=== PATIENT | female | born 1980 | race Caucasian/White ===

== ENCOUNTER → 2016-06-09 | Outpatient (CLI) | payer OTHER ==
[~2016-06-09] MED LIST: ACET-1256 PO; CALC500C70 PO; CLR10 PO; DICY10CA12 PO; FOLI1TAB7 PO; IBUP-1451 PO; RANI300C PO
--- NOTE | 2016-06-09 16:31 | DIAGNOSTIC IMAGING REPORT ---
CT OF THE SINUSES WITHOUT CONTRAST FUSION PROTOCOL CLINICAL HISTORY: Post nasal drainage. Chronic sinusitis. COMPARISON STUDY: No previous studies for comparison. TECHNIQUE: Axial images of the sinuses were obtained without IV contrast. Coronal reformats were viewed. This study was performed according to Fusion protocol. FINDINGS: The intracranial contents are unremarkable on this unenhanced exam. There is no fluid within the mastoid air cells. There is no fluid within the middle ears. Ossicles are intact. Orbits are unremarkable on this unenhanced exam. No mass is identified within the nasal cavity or the sinuses. There is no bony destruction. The cribriform plate is intact. Major drainage pathways are patent. There is minimal mucosal thickening of the ethmoid sinuses. There is mild leftward deviation of the nasal septum with spur formation. No air-fluid levels are present. The turbinates are intact. IMPRESSION: 1. No significant sinus opacification. Patent major drainage pathways. Minimal mucosal thickening of the ethmoid sinuses. 2. Mild leftward deviation of the nasal septum with moderate spur formation. Electronically signed by: Kris Thakkar M.D. 06/09/2016 4:29 PM Dictated Date/Time: 06/09/2016 4:25 PM
== END | disposition home or self-care (01) ==
LOC: C.CTS 16:03
PROVIDERS: ATTEND Hospitalist
DX: J32.9 Chronic sinusitis, unspecified (principal); R09.82 Postnasal drip

== ENCOUNTER → 2016-08-02 | Day surgery (SDC) | payer OTHER ==
[2016-07-20 11:33] VITALS: Ht 167.6 cm; Wt 81.8 kg
[~2016-08-02] VITALS: Ht 167.6 cm; Wt 81.8 kg
[~2016-08-02] MED LIST changes: +ATROPINE SULFATE 0.1 MG/ML 5ML SYR IV PRN; +CEFAZOLIN 2000 MG/60 ML D5W IV SCH; +DEXAMETHASONE SOD INJ 4 MG/ML VIAL ONE; +EpHEDrine SULFATE INJ 50 MG/ML AMP IV PRN; +EpINEphrine INJ 1MG/ML AMP 1 MG/ML AMP ONE; +FENTANYL CITRATE INJ 50 MCG/1 ML 2 ML VIAL ONE; +HYDROCODONE/ACETAMOPHEN 5/325MG TAB PO PRN; +LACTATED RINGER'S 1000ML 1,000 ML IV SCH; +LIDOCAINE 4% MPF SOAK 5 ML = 1 DOSE TOP ONE; +LIDOCAINE HCL 2% 2 ML VIAL (20MG/ML) ONE; +LIDOCAINE/EPINEPHRINE 1% INJ 50 ML VIAL ONE; +MIDAZOLAM HCL 1 MG/ML 2ML VIAL ONE; +ONDANSETRON INJ 2 MG/ML 2 ML VIAL IV PRN; +ONDANSETRON INJ 2 MG/ML 2 ML VIAL ONE; +OXYMETAZOLINE HCL 0.05% NA SPR 15 ML BTL PRN; +OXYMETAZOLINE HCL 0.05% NA SPR 15 ML BTL SCH; +PROPOFOL IV EMULSION 10 MG/ML 20 ML VIAL IV ONE; +SUCCINYLCHOLINE CHLORIDE 20 MG/ML 10 ML VIAL IV ONE
--- NOTE | 2016-08-02 11:45 | History & Physical Bridge - SC ---
H&P Re-Evaluation Bridge Note: I have examined the patient, reviewed the History & Physical and in the interval since the performance of the History & Physical I have noted the following changes of clinical significance: No changes noted
--- NOTE | 2016-08-02 11:58 | History and Physical: Surg Cnt ---
History & Physical Date Aug 02, 2016. Chief Complaint NASAL OBSTRUCTION History of Present Illness The patient is a 36 year old female with complaints of L>R NASAL OBSTRUCTION FOUND TO HAVE LEFT SEPTAL DEVIATION AND R>L INFERIOR TURBINATE HYPERTROPHY Past Medical/Surgical History PSH: S/P ORAL SURGERY Additional History Hepatic Disease: No Endocrine Disorder: No Kidney Disease: No Hypertension: No Heart Disease: No Bleeding Tendencies: No Infectious Diseases: No Allergies Coded Allergies: Acetaminophen (Verified Allergy, Unknown, RASH AND "FEELING CRAZY", ) Codeine (Verified Allergy, Unknown, RASH AND "FEELING CRAZY", 08/02/16) Fluconazole (Verified Allergy, Unknown, RASH, 08/02/16) Home Medications Scheduled Calcium/Vitamin D (Os-George 500 Plus D), 1 TAB PO QAM Folic Acid (Folvite), 1 MG PO QAM Loratadine (Claritin), 10 MG PO QAM Ranitidine Hcl (Ranitidine Hcl), 1 CAP PO QAM Scheduled PRN Acetaminophen (Tylenol), 500 MG PO Q6H PRN for Pain Dicyclomine Hcl (Dicyclomine Hcl), 1 CAP PO TID PRN for Diarrhea Ibuprofen Tab (Motrin), 800 MG PO Q8H PRN for Pain Physical Examination Skin: warm/dry, no rash Eyes: normal inspection, EOMI, sclerae normal ENT: + pertinent finding (LEFT SEPTAL DEVIATION AND R>L ITH) Head: normocephalic, atraumatic Neck: supple, no adenopathy, trachea midline Respiratory/Chest: lungs clear, normal breath sounds, no respiratory distress Cardiovascular: regular rate, rhythm, no edema, no murmur Neurologic/Psych: no motor/sensory deficits, alert, normal reflexes, oriented x 3 Diagnosis LEFT SEPTAL DEVIATION AND R>L INFERIOR TURBINATE HYPERTROPHY Plan of Treatment SEPTOPLASTY AND BILATERAL INFERIOR TURBINATE REDUCTION
--- NOTE | 2016-08-02 12:30 | [facility] Operative Report ---
Operative Report Operative Date Aug 02, 2016. Pre-Operative Diagnosis Deviated Nasal Septum, Hypertrophy of Inferior Nasal Turbinates Post-Operative Diagnosis Same Procedure(s) Performed Septoplasty And Bilateral Inferior Turbinate Outfracture And Turbinoplasty Surgeon Dr. Bassett Evidence Custodian Surgeon(s) None Estimated Blood Loss 10 mL Findings 1. MODERATE L DNS 2. R>L ITH Specimens None I attest to the content of the Intraoperative Record and any orders documented therein. Any exceptions are noted below.
--- NOTE | 2016-08-02 12:33 | Discharge Instructions ---
Discharge Instructions Date of Service Aug 02, 2016. Admission Reason for Admission: SEPTAL DEVIATION AND BILATERAL INFERIOR TURBINATE HYPERTROPHY Discharge Discharge Diagnosis / Problem: SAME Discharge Goals Goal(s): Improve function Activity Recommendations Activity Limitations: as noted below LIGHT ACTIVITY FOR 2WEEKS; NO NOSE BLOWING FOR 2WEEKS; NO DRIVING WHILE ON NARCOTICS . Current Hospital Diet Patient's current hospital diet: Discharge Diet Recommended Diet: Regular Diet Procedures Procedures Performed: Septoplasty And Bilateral Inferior Turbinate Outfracture And Turbinoplasty Pending Studies Studies pending at discharge: no Medical Emergencies . Who to Call and When: Medical Emergencies: If at any time you feel your situation is an emergency, please call 911 immediately. . Non-Emergent Contact Non-Emergency issues call your: Surgeon . . "Provider Documentation" section prepared by Jaydon Bassett. VTE Core Measure Inpt VTE Proph given/why not?: SCD's
--- NOTE | 2016-08-02 13:08 | Anesthesia Progress Nt - [facility] ---
Anesthesia Post Op Note Date & Time Aug 02, 2016 at 13:08 Vital Signs Pain Intensity: 0 Vital Signs Past 12 Hours Date Time Temp Pulse Resp B/P Pulse Ox O2 Delivery O2 Flow Rate FiO2 08/02/16 12:47 36.8 99 18 135/61 99 Humidified Oxygen 6 Diffusion Mask 08/02/16 10:21 36.6 70 16 124/80 100 Room Air Notes Mental Status: alert / awake / arousable, participated in evaluation Pt Amnestic to Procedure: Yes Nausea / Vomiting: adequately controlled Pain: adequately controlled Airway Patency, RR, SpO2: stable & adequate BP & HR: stable & adequate Hydration State: stable & adequate Anesthetic Complications: no major complications apparent
[2016-08-02 13:38] VITALS: TEMP 36.7
[2016-08-02 14:05] VITALS: BP 131/83; PULSE 75; O2SAT 100
--- NOTE | 2016-08-02 14:57 | OPERATIVE REPORT ---
DATE OF OPERATION: 08/02/2016 PREOPERATIVE DIAGNOSES: 1. Left septal deviation. 2. Right greater than left inferior turbinate hypertrophy. POSTOPERATIVE DIAGNOSES: 1. Left septal deviation. 2. Right greater than left inferior turbinate hypertrophy. PROCEDURES: 1. Septoplasty. 2. Bilateral inferior turbinate outfracture and turbinoplasty. SURGEON: Dr. Jaydon Bassett. ANESTHESIA: General endotracheal. ESTIMATED BLOOD LOSS: 10 mL. FINDINGS: 1. Moderate left septal deviation with posterior septal spur. 2. Right greater than left inferior turbinate hypertrophy. SPECIMENS: None. COMPLICATIONS: None. INDICATIONS FOR THE PROCEDURE: The patient is a 36-year-old female with a complaint of left greater than right nasal airway obstruction and was found to have left septal deviation and right greater than left inferior turbinate hypertrophy. She presents for the above-mentioned procedures on an outpatient elective basis. DESCRIPTION OF PROCEDURE: After informed consent had been obtained from the patient, the patient was wheeled to the operating room and placed on the operating table in the supine position. Monitors were placed. After induction of general endotracheal anesthesia, the patient was prepped in the usual fashion for septoplasty. 6 mL of 1% lidocaine with 1:100,000 epinephrine was used to inject the mucosa and submucosa of the nasal septum, thereby performing a hydrodissection of the mucoperichondrial and mucoperiosteal flaps. Lidocaine and Afrin pledgets were then placed in the bilateral nasal cavities and pressure applied. The pledgets were then removed and a #15 scalpel was used to make a left [place] incision, through which a left-sided mucoperichondrial mucoperiosteal flap was elevated. A #15 scalpel was then used to incise the quadrangular cartilage with care to preserve a 1.5-cm dorsal and caudal strut and the right-sided mucoperichondrial mucoperiosteal flap was elevated through this cartilaginous incision. A Vicente Silver knife was then used to remove the deviated portion of the quadrangular cartilage. The Chester-Moralez forceps was then used to remove septal bone posteriorly. Kellen forceps was used to remove a large bony septal spur, which was impinging on the airway posteriorly on the left hand side. The septal cavity was then suctioned. The left [place] incision was then closed with several simple interrupted 4-0 chromic sutures. A 4-0 plain gut suture on a Napoleon needle was then used to perform a quilting stitch of the mucoperichondrial mucoperiosteal flaps bilaterally to help prevent septal hematoma. A Farrell elevator was then used to infracture and subsequently outfracture the inferior turbinates bilaterally. 3 mL of 1% lidocaine with 1:100,000 epinephrine was used to inject the inferior turbinates bilaterally. A 2.0-mm turbinate blade using powered instrumentation was then used to perform bilateral inferior turbinoplasties in a submucosal fashion. The sinonasal cavities and nasopharynx were then suctioned. An orogastric tube was placed and the stomach was suctioned free of any stomach contents. This marked the end of the case. The patient tolerated the procedure well and there were no apparent complications. All the instrumentation was removed from the patient. The patient was extubated and transferred to recovery room in stable condition. I attest to the content of the Intraoperative Record and any orders documented therein. Any exceptio ns are noted below.
== END | disposition home or self-care (01) ==
LOC: X.SURG 10:03
DX: J34.2 Deviated nasal septum (principal); J34.3 Hypertrophy of nasal turbinates

== ENCOUNTER 2017-02-05 18:24 | Emergency (ER) | payer OTHER ==
[~2017-02-05] VITALS: Ht 167.6 cm; Wt 86.1 kg
[~2017-02-05 18:24] MED LIST changes: -ATROPINE SULFATE 0.1 MG/ML 5ML SYR IV PRN; -CEFAZOLIN 2000 MG/60 ML D5W IV SCH; -DEXAMETHASONE SOD INJ 4 MG/ML VIAL ONE; -EpHEDrine SULFATE INJ 50 MG/ML AMP IV PRN; -EpINEphrine INJ 1MG/ML AMP 1 MG/ML AMP ONE; -FENTANYL CITRATE INJ 50 MCG/1 ML 2 ML VIAL ONE; -HYDROCODONE/ACETAMOPHEN 5/325MG TAB PO PRN; -IBUP-1451 PO; -LACTATED RINGER'S 1000ML 1,000 ML IV SCH; -LIDOCAINE 4% MPF SOAK 5 ML = 1 DOSE TOP ONE; -LIDOCAINE HCL 2% 2 ML VIAL (20MG/ML) ONE; -LIDOCAINE/EPINEPHRINE 1% INJ 50 ML VIAL ONE; -MIDAZOLAM HCL 1 MG/ML 2ML VIAL ONE; -ONDANSETRON INJ 2 MG/ML 2 ML VIAL IV PRN; -ONDANSETRON INJ 2 MG/ML 2 ML VIAL ONE; -OXYMETAZOLINE HCL 0.05% NA SPR 15 ML BTL PRN; -OXYMETAZOLINE HCL 0.05% NA SPR 15 ML BTL SCH; -PROPOFOL IV EMULSION 10 MG/ML 20 ML VIAL IV ONE; -SUCCINYLCHOLINE CHLORIDE 20 MG/ML 10 ML VIAL IV ONE
[2017-02-05 18:29] VITALS: TEMP 36.7; Ht 167.6 cm; Wt 86.1 kg
[2017-02-05] MEDS ORDERED: SODIUM CHLORIDE 0.9% 1000ML 250 ML IV STA (18:52)
[2017-02-05] MEDS ORDERED: SODIUM CHLORIDE 0.9% 1000ML 1,000 ML IV STA (18:52)
--- NOTE | 2017-02-05 19:03 | EMERGENCY ROOM VISIT NOTE ---
History Report prepared by Fredis: Carlos Enrique Swain Under the Supervision of: Dr. Jaskaran Hallman M.D. First contact with patient: 18:37 Chief Complaint: NEURO SYMPTOMS Stated Complaint: NEURO SYMPTOMS History of Present Illness The patient is a 36 year old female who presents to the Emergency Room with complaints of this worsening weakness that started this afternoon. She rates her discomfort as a 5/10 in severity. The patient states that she has been experiencing numbness and weakness in her jaw that intermittently shoots down into her arms. She states that her right arm is worse than her left. The patient states that the numbness gives her visionary problems at times. She admits that she has been drooling due to the numbness. The patient also admits to dental pain and a sore throat. The patient states that she has also been experiencing dysphasia that started this afternoon whenever the numbness started. The She reports that she went to [facility] clinical and [facility] before coming to the ED. The patient reports that Urgent Care told her to report to the ED. She states that she has been experiencing nausea every morning , but admits that she takes Zofran. The patient states that she has a history of chronic sinus infections, which she takes Doxycycline for. She admits to a history of IVF. 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 She denies any fevers, chest pain, SOB, abdominal pain, vomiting, a possible , and a rash. Source of History: patient Onset: this afternoon Position: jaw, arm (bilateral) Symptom Intensity: 5/10 Timing: worsening Associated Symptoms: + nausea, No fevers, No chest pain, No SOB, No vomiting , No abdominal pain, No rash Review of Systems See HPI for pertinent positives & negatives. A total of 10 systems reviewed and were otherwise negative. Past Medical & Surgical Medical Problems: (1) Sinus infection Old medical records were reviewed. Nurse's notes were reviewed and I agree with. Family History Patient reports no known family medical history. Social History Smoking Status: Never Smoker Drug Use: none Occupation Status: employed Current/Historical Medications Scheduled Calcium/Vitamin D (Os-George 500 Plus D), 1 TAB PO QAM Folic Acid (Folvite), 1 MG PO QAM Loratadine (Claritin), 10 MG PO QAM Ranitidine Hcl (Ranitidine Hcl), 1 TAB PO QAM Scheduled PRN Dicyclomine Hcl (Dicyclomine Hcl), 1 CAP PO TID PRN for Diarrhea Allergies Coded Allergies: Acetaminophen (Verified Allergy, Unknown, RASH AND "FEELING CRAZY", ) Codeine (Verified Allergy, Unknown, RASH AND "FEELING CRAZY", 08/02/16) Fluconazole (Verified Allergy, Unknown, RASH, 08/02/16) Physical Exam Vital Signs Date Time Temp Pulse Resp B/P (MAP) Pulse Ox O2 Delivery O2 Flow Rate FiO2 02/05/17 22:30 88 18 128/70 100 02/05/17 20:11 69 18 130/89 100 Room Air 02/05/17 19:32 76 02/05/17 19:06 100 Room Air 02/05/17 18:29 36.7 82 18 135/84 99 Room Air Physical Exam General: Well developed well nourished non ill appearing young female in no acute distress, breathing comfortably on room air. Normal speech HEENT: Normal cephalic atraumatic. No facial swelling. Pupils are equal round and reactive to light. Extraocular movements are intact. Oropharynx is pink with moist mucous membranes. No swelling of the mouth lips or tongue. Floor the mouth is soft. No evidence of abscess. Posterior oropharynx is wide open. Neck: Supple with a midline trachea. No meningeal signs or stiffness, no JVD or bruits. No Stridor. No masses. Chest: Clear to auscultation bilaterally. No wheezes or rhonchi. No increased work of breathing. Heart: regular rate and rhythm. Abdomen: Soft nontender, nondistended without rebound guarding or rigidity. Extremities: No cyanosis clubbing or edema. No calf tenderness or assymetry Spine/Back. Non tender to palpation. No CVA tenderness Skin: Good turgor without rashes. Neurologic exam: Cranial nerves two through 12 are intact. Motor and sensation are intact and symmetrical throughout. She feels like she has decreased sensation in her cheeks, symmetrical. No tremor. Able to read sentences. No aphasia. Medical Decision & Procedures ER Provider Diagnostic Interpretation: Radiology results as stated below per my review and radiologist interpretation: CT NECK WITHOUT INTRAVENOUS CONTRAST HISTORY: eval for throat pain and facial tingling TECHNIQUE: Multiaxial CT images of the neck were performed without the use of intravenous contrast. COMPARISON STUDY: None. FINDINGS: The visualized brain parenchyma and orbits are unremarkable. The major mucosal airway surfaces are intact. The epiglottis and prevertebral soft tissues are normal in thickness. Evaluation for an abscess or mass is limited due to the lack of intravenous contrast. However, there are no loculated fluid collections or solid masses identified. The parotid and submandibular glands are within normal limits. The thyroid gland appears within normal limits. The lung apices are clear. No suspicious lytic or blastic osseous lesions. The paranasal sinuses and mastoid air cells are clear. IMPRESSION: No significant abnormality identified within the neck. Electronically signed by: Mian Granados M.D. 02/05/2017 7:56 PM Dictated Date/Time: 02/05/2017 7:[address] CT DOSE: HISTORY: eval for facial numbness, throat pain TECHNIQUE: Multiaxial CT images of the head were performed without the use of intravenous contrast. Automated exposure control was utilized for this study. A dose lowering technique was utilized adhering to the principles of ALARA. Comparison: None. Findings: The paranasal sinuses and mastoid air cells are clear. The calvarium and skull base are intact. The ventricles and sulci are within normal limits. There is no mass, hematoma, midline shift, or acute infarct. Impression: No acute intracranial abnormality. Electronically signed by: Mian Granados M.D. 02/05/2017 7:40 PM Dictated Date/Time: 02/05/2017 7:34 PM CHEST ONE VIEW PORTABLE HISTORY: Atypical CHEST PAIN COMPARISON: None. FINDINGS: The lungs are clear. Cardiac silhouette is normal in size. No pleural effusions. No pneumothorax. IMPRESSION: No acute process. Electronically signed by: Mian Granados M.D. 02/05/2017 7:30 PM Dictated Date/Time: 02/05/2017 7:29 PM Laboratory Results 02/05/17 19:15 Red Blood Count 4.70, Mean Corpuscular Volume 86.8, Mean Corpuscular Hemoglobin 30.0, Mean Corpuscular Hemoglobin Concent 34.6, Mean Platelet Volume 11.1, Neutrophils (%) (Auto) 43.7, Lymphocytes (%) (Auto) 39.1, Monocytes (%) (Auto) 8.5, Eosinophils (%) (Auto) 8.0, Basophils (%) (Auto) 0.4, Neutrophils # (Auto) 3.08, Lymphocytes # (Auto) 2.75, Monocytes # (Auto) 0.60, Eosinophils # (Auto) 0.56, Basophils # (Auto) 0.03 02/05/17 19:15 Test 02/05/17 19:15 White Blood Count 7.04 K/uL (4.8-10.8) Red Blood Count 4.70 M/uL (4.2-5.4) Hemoglobin 14.1 g/dL (12.0-16.0) Hematocrit 40.8 % (37-47) Mean Corpuscular Volume 86.8 fL (80-100) Mean Corpuscular Hemoglobin 30.0 pg (25-34) Mean Corpuscular Hemoglobin Concent 34.6 g/dl (32-36) Platelet Count 256 K/uL (130-400) Mean Platelet Volume 11.1 fL (7.4-10.4) Neutrophils (%) (Auto) 43.7 % Lymphocytes (%) (Auto) 39.1 % Monocytes (%) (Auto) 8.5 % Eosinophils (%) (Auto) 8.0 % Basophils (%) (Auto) 0.4 % Neutrophils # (Auto) 3.08 K/uL (1.4-6.5) Lymphocytes # (Auto) 2.75 K/uL (1.2-3.4) Monocytes # (Auto) 0.60 K/uL (0.11-0.59) Eosinophils # (Auto) 0.56 K/uL (0-0.5) Basophils # (Auto) 0.03 K/uL (0-0.2) RDW Standard Deviation 39.3 fL (36.4-46.3) RDW Coefficient of Variation 12.3 % (11.5-14.5) Immature Granulocyte % (Auto) 0.3 % Immature Granulocyte # (Auto) 0.02 K/uL (0.00-0.02) Anion Gap 6.0 mmol/L (3-11) Est Creatinine Clear Calc Drug Dose 107.1 ml/min Estimated GFR () 109.1 Estimated GFR (Non- 94.1 BUN/Creatinine Ratio 17.8 (10-20) Calcium Level 9.0 mg/dl (8.5-10.1) Total Bilirubin 0.4 mg/dl (0.2-1) Direct Bilirubin < 0.1 mg/dl (0-0.2) Aspartate Amino Transf (AST/SGOT) 8 U/L (15-37) Alanine Aminotransferase (ALT/SGPT) 18 U/L (12-78) Alkaline Phosphatase 51 U/L (45-117) Total Protein 7.0 gm/dl (6.4-8.2) Albumin 4.0 gm/dl (3.4-5.0) Lipase 134 U/L (73-393) Thyroid Stimulating Hormone (TSH) 1.870 uIu/ml (0.300-4.500) Human Chorionic Gonadotropin, Qual NEG (NEG) Lyme Disease IgG Antibody NEG (NEG) Lyme Disease IgM Antibody NEG (NEG) Laboratory studies as stated above per my review. Medications Administered Medications (Trade) Dose Ordered Sig/Kenneth Route Start Time Stop Time Status Last Admin Dose Admin Sodium Chloride 250 ml @ 999 mls/hr Q16M STAT IV 02/05/17 18:52 02/05/17 19:07 DC 02/05/17 19:43 999 MLS/HR Sodium Chloride 1,000 ml @ 100 mls/hr Q10H STAT IV 02/05/17 18:52 02/05/17 22:41 DC 02/05/17 19:43 100 MLS/HR Ketorolac Tromethamine (Toradol Inj) 30 mg NOW STAT IV 02/05/17 20:33 02/05/17 20:34 DC 02/05/17 20:48 30 MG ECG Indication: weakness Rate (beats per minute): 81 Rhythm: normal sinus Findings: no acute ischemic change, no ectopy ED Course 1841: Past medical records reviewed. The patient was evaluated in room C01B, and a complete history and physical examination were performed. 1851: Ordered Sodium Chloride 1000 ml @ 100 mls/hr IV, Sodium Chloride 250 ml @ 999 mls/hr IV. 1936: I reevaluated the patient and she is resting comfortably. She had just got back from CT. 2036: I reevaluated the patient and she reports tingling and pain in her jaw bilaterally. The patient is better than she was before. Her speech is normal. I ordered more Toradol. 2032: Ordered Toradol Injection 30 mg IV. 2211: Upon reevaluation, the patient is feeling better after the Toradol. I discussed the results and treatment plan with the patient. She verbalized agreement of the treatment plan. The patient was discharged home. Medical Decision Differentials include, but are not limited to; infection, electrolyte/ metabolic imbalance, intracranial process, Lyme's disease, oropharynx process. This patient comes in as described above. She was placed room C1. She has multiple vague complaints. She initially complains that she is having trouble talking slightly but has tingling in her cheeks bilaterally and her teeth hurt. She looks well on exam has no a phase able read sentences and go through the normal stroke scale. She's no neurologic deficits. She's had no trauma or fever and has no headache. Her throat exam is unremarkable she is speaking and swallowing without any difficulties no evidence of abscess. I did do a CAT scan of her head and neck and they're unremarkable. There is no soft tissue abnormality seen in her neck or throat. EKG does not suggest acute coronary syndrome or arrhythmia. Her blood work shows no acute electrolyte or metabolic abnormalities. She was given Toradol 30 mg IV is feeling significant better. It seems like there is more pain and tingling in her face bilaterally. I do not find any evidence to suggest infection or central neurologic process. She is feeling better. She will be discharged home. I encouraged her to return if : Worsening of symptoms, further numbness weakness fever chills, any new problems or concerns. She was happy the plan and discharged home. She should follow up with her regular doctor for recheck this week and return to the ER over the weekend if symptoms worsen. Medication Reconcilliation Current Medication List: was personally reviewed by me Blood Pressure Screening Patient's blood pressure: Normal blood pressure Impression Primary Impression: Facial numbness Additional Impression: Jaw pain Scribe Attestation The scribe's documentation has been prepared under my direction and personally reviewed by me in its entirety. I confirm that the note above accurately reflects all work, treatment, procedures, and medical decision making performed by me. Departure Information Dispostion Home / Self-Care Referrals No Doctor, Assigned (PCP) Forms HOME CARE DOCUMENTATION FORM, IMPORTANT VISIT INFORMATION, WORK / SCHOOL INSTRUCTIONS Patient Instructions My [facility] Additional Instructions Rest. Drink plenty of fluids Return if: Increasing pain, worsening of symptoms, numbness weakness, any new problems or concerns. Use Ibuprofen 400 mg every 6 hours if needed Follow-up with your doctor on Tuesday for recheck Problem Qualifiers
[2017-02-05 19:06] VITALS: O2SAT 100
[2017-02-05 19:25] LABS: BASO % 0.4 %; BASO ABS # 0.03 K/uL (0-0.2); COMPLETE YES; HEMATOCRIT 40.8 % (37-47); IG% 0.3 %; LYMPH % 39.1 %; LYMPH ABS # 2.75 K/uL (1.2-3.4); MEAN CELL VOLUME 86.8 fL (80-100); MEAN CORPUSCULAR HGB CONC 34.6 g/dl (32-36); MEAN PLATELET VOLUME 11.1 fL (7.4-10.4); MONO % 8.5 %; NEUT % 43.7 %; PLATELET COUNT 256 K/uL (130-400); WHITE BLOOD COUNT 7.04 K/uL (4.8-10.8)
--- NOTE | 2017-02-05 19:31 | DIAGNOSTIC IMAGING REPORT ---
CHEST ONE VIEW PORTABLE HISTORY: Atypical CHEST PAIN COMPARISON: None. FINDINGS: The lungs are clear. Cardiac silhouette is normal in size. No pleural effusions. No pneumothorax. IMPRESSION: No acute process. Electronically signed by: Mian Granados M.D. 02/05/2017 7:30 PM Dictated Date/Time: 02/05/2017 7:29 PM
--- NOTE | 2017-02-05 19:41 | DIAGNOSTIC IMAGING REPORT ---
HEAD CT NONCONTRAST CT DOSE: HISTORY: eval for facial numbness, throat pain TECHNIQUE: Multiaxial CT images of the head were performed without the use of intravenous contrast. Automated exposure control was utilized for this study. A dose lowering technique was utilized adhering to the principles of ALARA. Comparison: None. Findings: The paranasal sinuses and mastoid air cells are clear. The calvarium and skull base are intact. The ventricles and sulci are within normal limits. There is no mass, hematoma, midline shift, or acute infarct. Impression: No acute intracranial abnormality. Electronically signed by: Mian Granados M.D. 02/05/2017 7:40 PM Dictated Date/Time: 02/05/2017 7:34 PM
[2017-02-05 19:50] LABS: PREG INTERNAL NEGATIVE QC NEG CLEAR BACKGROUND; PREG INTERNAL POSITIVE QC POS CONTROL LINE
--- NOTE | 2017-02-05 19:58 | DIAGNOSTIC IMAGING REPORT ---
CT NECK WITHOUT INTRAVENOUS CONTRAST HISTORY: eval for throat pain and facial tingling TECHNIQUE: Multiaxial CT images of the neck were performed without the use of intravenous contrast. COMPARISON STUDY: None. FINDINGS: The visualized brain parenchyma and orbits are unremarkable. The major mucosal airway surfaces are intact. The epiglottis and prevertebral soft tissues are normal in thickness. Evaluation for an abscess or mass is limited due to the lack of intravenous contrast. However, there are no loculated fluid collections or solid masses identified. The parotid and submandibular glands are within normal limits. The thyroid gland appears within normal limits. The lung apices are clear. No suspicious lytic or blastic osseous lesions. The paranasal sinuses and mastoid air cells are clear. IMPRESSION: No significant abnormality identified within the neck. Electronically signed by: Mian Granados M.D. 02/05/2017 7:56 PM Dictated Date/Time: 02/05/2017 7:52 PM
[2017-02-05 20:00] LABS: ALT/SGPT 18 U/L (12-78); AST/SGOT 8 U/L (15-37); BLOOD UREA NITROGEN 14 mg/dl (7-18); BUN/CREATININE RATIO 17.8 (10-20); CARBON DIOXIDE 30 mmol/L (21-32); CHLORIDE 104 mmol/L (98-107); CREATININE 0.81 mg/dl (0.60-1.20); GLUCOSE 93 mg/dl (70-99); POTASSIUM 3.7 mmol/L (3.5-5.1); SODIUM 140 mmol/L (136-145)
[2017-02-05 20:11] LABS: ALKALINE PHOSPHATASE 51 U/L (45-117)
[2017-02-05 20:21] LABS: LYME DISEASE AB IGG NEG (NEG); LYME DISEASE AB IGM NEG (NEG)
[2017-02-05] MEDS ORDERED: KETOROLAC TROMETHAMINE 30 MG/ML VIAL IV STA (20:33)
[2017-02-05 22:30] VITALS: BP 128/70; PULSE 88; O2SAT 100
== END 2017-02-05 22:32 | disposition home or self-care (01) ==
LOC: C.EDB 18:25 → C.EDC 22:32
DX: R20.2 Paresthesia of skin (principal); R68.84 Jaw pain; Z86.19 Personal history of other infectious and parasitic diseases; Z79.899 Other long term (current) drug therapy; Z88.5 Allergy status to narcotic agent; Z88.6 Allergy status to analgesic agent; Z88.8 Allergy status to other drugs, medicaments and biological substances